=== PATIENT | female | born 1955 | race Caucasian/White ===

== ENCOUNTER 2017-06-21 06:24 | Day surgery (SDC) | payer BC ==
[2017-06-21] MEDS ORDERED: Lidocaine 1%/Sod Bicarbonate in NS 8.4% 1 ML Syringe IV PRN (07:19)
[2017-06-21] MEDS ORDERED: Bupivacaine 0.25% 30 ML SDV ONE (07:19)
[2017-06-21] MEDS ORDERED: Sodium Chloride 0.9% 10 ML Syringe FLUSH PRN (07:19)
[2017-06-21] MEDS ORDERED: fentaNYL 250 MCG/5 ML SDV ONE (07:21)
[2017-06-21] MEDS ORDERED: Midazolam 1 MG/ML 2 ML SDV ONE (07:21)
[2017-06-21] MEDS ORDERED: Dexamethasone 4 MG/ML SDV ONE (07:21)
[2017-06-21] MEDS ORDERED: Lidocaine 1% 4 ML ONE (07:21)
[2017-06-21] MEDS ORDERED: Rocuronium 50 MG/5 ML Vial ONE (07:21)
[2017-06-21] MEDS ORDERED: Propofol 200 MG/20 ML SDV ONE (07:21)
[2017-06-21] MEDS ORDERED: Ondansetron 4 MG/2 ML SDV ONE (07:21)
[2017-06-21] MEDS ORDERED: Lactated Ringers 1,000 ML IV SCH (07:30)
[2017-06-21] MEDS ORDERED: ceFAZolin 1 GM Vial ONE (07:33)
--- NOTE | 2017-06-21 07:40 | PCM.PREANE ---
Preanesthetic Assessment - Procedure Proposed Procedure: ORIF left distal radius fracture - Anesthesia/Transfusion/Family Hx Anesthesia History: Prior Anesthesia Without Reaction Family History of Anesthesia Reaction: No Transfusion History: No Prior Transfusion(s) Intubation History: Unknown - Review of Systems General: No Symptoms Pulmonary: No Symptoms Cardiovascular: Other (HTN) Gastrointestinal: No Symptoms Neurological: No Symptoms Other: Reports: None - Physical Assessment NPO Status Date: 06/20/17 NPO Status Time: 23:30 O2 Sat by Pulse Oximetry: 97 Respiratory Rate: 16 Vital Signs: Last Vital Signs Temp 36.6 C 06/21/17 07:00 Pulse 56 L 06/21/17 07:00 Resp 16 06/21/17 07:00 BP 113/61 06/21/17 07:00 Pulse Ox 97 06/21/17 07:00 Height: 1.63 m Weight: 89.358 kg ASA Class: 2 Mental Status: Alert & Oriented x3 Airway Class: Mallampati = 1 Dentition: Reports: Normal Dentition Thyro-Mental Finger Breadths: 3 Mouth Opening Finger Breadths: 3 ROM/Head Extension: Full Lungs: Clear to Auscultation, Normal Respiratory Effort Cardiovascular: Regular Rate, Regular Rhythm - Allergies Allergies/Adverse Reactions: Allergies Allergy/AdvReac Type Severity Reaction Status Date / Time No Known Allergies Allergy Verified 06/20/17 14:03 - Blood Blood Available: No Product(s) Available: None - Anesthesia Plan Pre-Op Medication Ordered: None - Acknowledgements Anesthesia Type Planned: General Anesthesia Pt an Appropriate Candidate for the Planned Anesthesia: Yes Alternatives and Risks of Anesthesia Discussed w Pt/Guardian: Yes Pt/Guardian Understands and Agrees with Anesthesia Plan: Yes PreAnesthesia Questionnaire HEENT History: Reports: None Cardiovascular History: Reports: Hypertension Respiratory History: Reports: Other (See Below) Other Respiratory History: acute bronchitis Gastrointestinal History: Reports: None Genitourinary History: Reports: None 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 Musculoskeletal History: Reports: Other (See Below) Other Musculoskeletal History: body aches, knee surgery Neurological History: Reports: Headaches, Chronic, Other (See Below) Other Neuro History: numbness and tingling to right face Psychiatric History: Reports: None Endocrine/Metabolic History: Reports: None Hematologic History: Reports: None Immunologic History: Reports: None Oncologic (Cancer) History: Reports: None Dermatologic History: Reports: None - Past Surgical History HEENT Surgical History: Reports: None Cardiovascular Surgical History: Reports: None Respiratory Surgical History: Reports: None GI Surgical History: Reports: None Female Surgical History: Reports: Section Male Surgical History: Reports: None Endocrine Surgical History: Reports: None Neurological Surgical History: Reports: None Musculoskeletal Surgical History: Reports: None Oncologic Surgical History: Reports: None Dermatological Surgical History: Reports: None - SUBSTANCE USE Smoking Status *Q: Never Smoker Second Hand Smoke Exposure: No Recreational Drug Use History: No - HOME MEDS Home Medications: Home Meds Acetaminophen [Tylenol Extra Strength] 2 tab PO Q6H PRN 06/20/17 [History] Aspirin [Children's Aspirin] 81 mg PO DAILY 06/20/17 [History] Lisinopril 10 mg PO DAILY 06/20/17 [History] Metoprolol Tartrate 25 mg PO BID 06/20/17 [History] Omeprazole 20 mg PO DAILY 06/20/17 [History] Acetaminophen/HYDROcodone [[place] 325-5 MG] 1 - 2 tab PO Q6H PRN #40 tablet 06/21 [Rx] - CURRENT (IN HOUSE) MEDS Current Meds: Current Medications Lactated Ringer's (Ringers, Lactated) 1,000 mls @ 125 mls/hr IV ASDIRECTED ADÁN Stop: 06/21/17 18:00 Last Admin: 06/21/17 07:15 Dose: 125 mls/hr Lidocaine/Sodium Bicarbonate (Buffered Lidocaine 1% In Ns 8.4%) 0.25 ml IV ONETIME PRN PRN Reason: Prior to IV Start Stop: 06/21/17 18:00 Last Admin: 06/21/17 07:15 Dose: 0.25 ml Sodium Chloride (Saline Flush) 10 ml FLUSH ASDIRECTED PRN PRN Reason: Keep Vein Open Stop: 06/21/17 18:00 Discontinued Medications Bupivacaine HCl (Marcaine 0.25%) Confirm Administered Dose 30 ml .ROUTE .STK- MED ONE Stop: 06/21/17 07:20 Cefazolin Sodium (Ancef) Confirm Administered Dose 2 gm .ROUTE .STK-MED ONE Stop: 06/21/17 07:34 Dexamethasone (Dexamethasone) Confirm Administered Dose 4 mg .ROUTE .STK-MED ONE Stop: 06/21/17 07:22 Fentanyl (Sublimaze) Confirm Administered Dose 250 mcg .ROUTE .STK-MED ONE Stop: 06/21/17 07:22 Lidocaine HCl (Xylocaine-Mpf 1%) Confirm Administered Dose 4 mls @ as directed .ROUTE .STK-MED ONE Stop: 06/21/17 07:22 Midazolam HCl (Versed 1 Mg/Ml) Confirm Administered Dose 2 mg .ROUTE .STK-MED ONE Stop: 06/21/17 07:22 Ondansetron HCl (Zofran) Confirm Administered Dose 4 mg .ROUTE .STK-MED ONE Stop: 06/21/17 07:22 Propofol (Diprivan 20 Ml) Confirm Administered Dose 200 mg .ROUTE .STK-MED ONE Stop: 06/21/17 07:22 Rocuronium Melbeta (Zemuron) Confirm Administered Dose 50 mg .ROUTE .STK-MED ONE Stop: 06/21/17 07:22
[2017-06-21] MEDS ORDERED: ePHEDrine 50 MG/ML SDV ONE (09:03)
[2017-06-21] MEDS ORDERED: Lactated Ringers 1,000 ML ONE (09:08)
[2017-06-21] MEDS ORDERED: HYDROmorphone 1 MG/ML Syringe ONE (09:54)
[2017-06-21] MEDS ORDERED: HYDROmorphone 0.5 MG/0.5 ML Syringe IVPUSH PRN (09:57)
[2017-06-21] MEDS ORDERED: diphenhydrAMINE 50 MG/ML SDV IVPUSH PRN (09:57)
[2017-06-21] MEDS ORDERED: Promethazine 6.25 MG in Sodium Chloride 0.9% 50 ML IV PRN (09:57)
[2017-06-21] MEDS ORDERED: fentaNYL 100 MCG/2 ML SDV IVPUSH PRN (09:57)
[2017-06-21] MEDS ORDERED: Meperidine PF 50 MG/ML Syringe IVPUSH PRN (09:57)
[2017-06-21] MEDS ORDERED: Neostigmine Methylsulfate 1 MG/ML 5 ML Syringe ONE (10:09)
--- NOTE | 2017-06-21 10:31 | PCM.POSTAN ---
POST ANESTHESIA ASSESSMENT - MENTAL STATUS Mental Status: Alert, Oriented - VITAL SIGNS Pulse Rate: 68 SaO2: 97 Resp Rate: 12 Blood Pressure: 99/55 Temperature: 37.4 C - RESPIRATORY Respiratory Status: Respiratory Rate WNL, Airway Patent, O2 Saturation Stable, Supplemental Oxygen - CARDIOVASCULAR CV Status: Pulse Rate WNL, Blood Pressure Stable - GASTROINTESTINAL GI Status: No Symptoms - PAIN Pain Score: 0 - POST OP HYDRATION Hydration Status: Adequate & Stable
--- NOTE | 2017-06-21 10:46 | CR ---
Left wrist: 14 fluoroscopic spot views were obtained utilizing C-arm device. Comparison: No prior wrist exam. Findings: Study shows placement of plate and screws within the distal left radius. This appears to affix a fracture. Fluoroscopy time given as 134.9 seconds. Impression: 1. Operative study as described above. Diagnostic code #2
[2017-06-21] MEDS ORDERED: Acetaminophen/HYDROcodone 325-5 MG Tab PO ONE ×3 (11:55→15:00)
[2017-06-21] MEDS ORDERED: Acetaminophen/HYDROcodone 325-10 MG Tab PO ONE ×2 (12:50→14:30)
--- NOTE | 2017-06-26 13:20 | PCM.OPNOTE ---
- General Post-Op/Procedure Note Date of Surgery/Procedure: 06/21/17 Operative Procedure(s): open reduction internal fixation of left distal radius fracture Pre Op Diagnosis: left intraarticular distal radius fracture Post-Op Diagnosis: Same Anesthesia Technique: General LMA, Local Primary Surgeon: Aidan South Anesthesia Provider: Roland Antunez Wood Drill Operator: Priyanka Ayala in mLs: 5 Complications: None Condition: Good
--- NOTE | 2017-06-26 15:03 | OR ---
DATE OF OPERATION: 06/21/2017 SURGEON: Aidan South MD OPERATION PERFORMED: Open reduction and internal fixation of left intra- articular distal radius fracture. PREOPERATIVE DIAGNOSIS: Left intraarticular distal radius fracture. POSTOPERATIVE DIAGNOSIS: Left intraarticular distal radius fracture. ANESTHESIA: General LMA with local. ANESTHESIA PROVIDER: Roland Antunez. CURB MACHINE OPERATOR: Priyanka Ayala PA-C ESTIMATED BLOOD LOSS: Less than 5 mL. COMPLICATIONS: None. CONDITION: Stable. DESCRIPTION OF PROCEDURE: The patient was identified in the preop holding area. Proper site was marked and identified by the surgeon. The patient was taken back to the operating theater. After adequate anesthesia, the patient had a nonsterile tourniquet applied to the left upper extremity. The left upper extremity was then sterilely prepped and draped in the usual sterile fashion. OR time-out was performed. The patient received 2 g IV Ancef. The left upper extremity was then exsanguinated. Tourniquet was insufflated to a 225 mmHg. Standard volar approach of Mega was used incision over the FCR tendon distally. The tendon sheath was then opened. The tendon was retracted ulnarly to protect the median nerve. The floor of the tendon sheath was then opened. Blunt dissection was taken down to the pronator quadratus. Pronator quadratus was then elevated off the distal radius. The fracture site was identified. There was noted to be multiple fracture lines that were intraarticular. At this time, the radial styloid was noted to have some step-off. At this time, with the use of K-wires, provisional reduction was then done and an intermediate [place] distal radial volar locking plate was placed under C-arm fluoroscopy. It was found to be in adequate position. At this time, a nonlocking screw was placed in the shaft to bring the plate down to the bone and was found to have adequate placement on both the AP and lateral views. At this time, reduction maneuvers were done to make sure the radius maintained height and volar tilt. At this time, 2.7 locking screws were then placed distally to hold the radial styloid piece as well as the other intraarticular pieces in place. It was found to have good stability. Two other nonlocking 2.7 screws were then placed in the shaft. The DRUJ was then tested and was found to be stable with no signs of instability. At this time, adequate saline was then irrigated through the wound. A 2-0 Vicryl was used for closure of the FCR tendon sheath, 3-0 Vicryl was used subcutaneously and Monocryl was used for the skin. The patient was placed in a sterile soft dressing and a splint and sent to PACU in stable condition. MMNICHOLAS /[id number]
== END 2017-06-21 14:30 | disposition home or self-care (01) ==
LOC: JD.SDS 06:24
PROVIDERS: ATTEND Orthopaedic Surgery
DX: S52.572A Other intraarticular fracture of lower end of left radius, initial encounter for closed fracture (principal); I10 Essential (primary) hypertension; K21.9 Gastro-esophageal reflux disease without esophagitis; Z79.82 Long term (current) use of aspirin; Z79.899 Other long term (current) drug therapy; Z98.890 Other specified postprocedural states; X58.XXXA Exposure to other specified factors, initial encounter
CPT/HCPCS: 25608; 76000; A9270; C1713; C1776; J0690; J1100; J1170; J2250; J2405; J2710; J3010; J3490; J7120; 01830; J2704

== ENCOUNTER 2018-11-12 17:41 | Emergency (ER) | payer BC ==
[2018-11-12] MEDS ORDERED: Sodium Chloride 0.9% 10 ML Syringe FLUSH PRN (18:51)
--- NOTE | 2018-11-12 18:57 | EDM.PDOC ---
ED HPI GENERAL MEDICAL PROBLEM - General Chief Complaint: Cardiovascular Problem Stated Complaint: TIGHTNESS IN CHEST Time Seen by Provider: 11/12/18 18:39 Source of Information: Reports: Patient, RN Notes Reviewed History Limitations: Reports: No Limitations - History of Present Illness INITIAL COMMENTS - FREE TEXT/NARRATIVE: Patient is a 63-year-old female who presents to the ED for the evaluation of chest heaviness. She states this started to occur around 2-3 days ago. She notes that her chest feels more heavy, and her breathing has been heavy. She states that today she had to lay down and take a nap for something she does not normally do. She states that she has some chest tightness in her mid sternum area but this radiates more to the right side. She states she's never felt anything like this before. She is on blood pressure medications, has history of heartburn for which she takes Prilosec daily (this has not been providing much benefit), she denies any cough, fever/chills, nausea/vomiting/diarrhea. She states she has been feeling well otherwise she notes just the chest heaviness. Chest Pain Score (Numeric/FACES): 6 - Related Data Allergies Allergy/AdvReac Type Severity Reaction Status Date / Time No Known Allergies Allergy Verified 11/12/18 17:53 Home Meds: Home Meds Acetaminophen [Tylenol Extra Strength] 2 tab PO Q6H PRN 06/20/17 [History] Aspirin [Children's Aspirin] 81 mg PO DAILY 06/20/17 [History] Lisinopril 10 mg PO DAILY 06/20/17 [History] Metoprolol Tartrate 25 mg PO BID 06/20/17 [History] Omeprazole 20 mg PO DAILY 06/20/17 [History] Past Medical History HEENT History: Reports: None Cardiovascular History: Reports: Hypertension Respiratory History: Reports: Other (See Below) Other Respiratory History: acute bronchitis Gastrointestinal History: Reports: None Genitourinary History: Reports: None [employer]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: Musculoskeletal History: Reports: Other (See Below) Other Musculoskeletal History: body aches, knee surgery Neurological History: Reports: Headaches, Chronic, Other (See Below) Other Neuro History: numbness and tingling to right face Psychiatric History: Reports: None Endocrine/Metabolic History: Reports: None Hematologic History: Reports: None Immunologic History: Reports: None Oncologic (Cancer) History: Reports: None Dermatologic History: Reports: None - Past Surgical History HEENT Surgical History: Reports: None Cardiovascular Surgical History: Reports: None Respiratory Surgical History: Reports: None GI Surgical History: Reports: None Female Surgical History: Reports: Section Endocrine Surgical History: Reports: None Neurological Surgical History: Reports: None Musculoskeletal Surgical History: Reports: Other (See Below) Other Musculoskeletal Surgeries/Procedures:: Knee and L wrist Oncologic Surgical History: Reports: None Dermatological Surgical History: Reports: None Social & Family History - Tobacco Use Smoking Status *Q: Never Smoker Second Hand Smoke Exposure: No - Caffeine Use Caffeine Use: Reports: Soda - Recreational Drug Use Recreational Drug Use: No ED ROS GENERAL - Review of Systems Review Of Systems: See Below Constitutional: Reports: Malaise. Denies: Fever, Chills, Weakness HEENT: Reports: No Symptoms Respiratory: Denies: Shortness of Breath, Wheezing, Cough, Sputum Cardiovascular: Reports: Chest Pain (chest discomfort/heaviness). Denies: Dyspnea on Exertion, Orthopnea Endocrine: Reports: No Symptoms GI/Abdominal: Denies: Diarrhea, Nausea, Vomiting : Reports: No Symptoms Musculoskeletal: Reports: No Symptoms Skin: Reports: No Symptoms Neurological: Reports: No Symptoms Psychiatric: Reports: No Symptoms Hematologic/Lymphatic: Reports: No Symptoms Immunologic: Reports: No Symptoms ED EXAM, GENERAL - Physical Exam Exam: See Below Exam Limited By: No Limitations General Appearance: Alert, WD/WN, No Apparent Distress Eye Exam: Bilateral Eye: EOMI, Normal Inspection, PERRL Ears: Normal External Exam Nose: Normal Inspection Throat/Mouth: Normal Inspection, Normal Lips, Normal Teeth, Normal Oropharynx, Normal Voice, No Airway Compromise Head: Atraumatic, Normocephalic Neck: Normal Inspection Respiratory/Chest: No Respiratory Distress, Lungs Clear, Normal Breath Sounds, No Accessory Muscle Use, Chest Non-Tender Cardiovascular: Normal Peripheral Pulses, Regular Rate, Rhythm, No Murmur GI/Abdominal: Normal Bowel Sounds, Soft, Non-Tender Extremities: Normal Inspection, Normal Capillary Refill Neurological: Alert, Oriented, Normal Cognition, No Motor/Sensory Deficits Psychiatric: Normal Affect, Normal Mood Skin Exam: Warm, Dry, Intact, Normal Color, No Rash EKG INTERPRETATION EKG Date: 11/12/18 Time: 18:08 Rhythm: NSR Rate (Beats/Min): 71 [place]: Normal P-Wave: Present QRS: Normal ST-T: Normal QT: Normal Comparison: NA - No Prior EKG EKG Interpretation Comments: Reviewed with Dr. Matias Course - Vital Signs Last Recorded V/S: Last Vital Signs Temp 97.4 F 11/12/18 17:55 Pulse 76 11/12/18 17:55 Resp 20 11/12/18 17:55 BP 129/76 11/12/18 17:55 Pulse Ox 98 11/12/18 17:55 - Orders/Labs/Meds Orders: Active Orders 24 hr Category Date Time Status EKG Documentation Completion [RC] ASDIRECTED Care 11/12/18 18:09 Active Peripheral IV Care [RC] . DIRECTED Care 11/12/18 18:51 Ordered Chest 2V [CR] Stat Exams 11/12/18 18:51 Ordered Sodium Chloride 0.9% [Saline Flush] Med 11/12/18 18:51 Ordered 10 ml FLUSH ASDIRECTED PRN Peripheral IV Insertion Adult [OM.PC] Routine Oth 11/12/18 18:51 Ordered EKG 12 Lead [EK] Stat Ther 11/12/18 18:09 Ordered Medication Orders Sodium Chloride (Saline Flush) 10 ml FLUSH ASDIRECTED PRN PRN Reason: Keep Vein Open Last Admin: 11/12/18 19:38 Dose: 10 ml Labs: Laboratory Tests 11/12/18 11/12/18 11/12/18 Range/Units 19:27 19:27 19:27 WBC 7.65 (3.98-10.04) K/mm3 RBC 4.24 (3.98-5.22) M/mm3 Hgb 13.2 (11.2-15.7) gm/L Hct 40.0 (34.1-44.9) % MCV 94.3 (79.4-94.8) fl MCH 31.1 (25.6-32.2) pg MCHC 33.0 (32.2-35.5) g/dl RDW Std Deviation 45.1 (36.4-46.3) fL Plt Count 307 (182-369) K/mm3 MPV 10.0 (9.4-12.3) fl Neutrophils % (Manual) 38 L (40-60) % Band Neutrophils % 0 (0-10) % Lymphocytes % (Manual) 48 H (20-40) % Atypical Lymphs % 0 % Monocytes % (Manual) 6 (2-10) % Eosinophils % (Manual) 5 (0.7-5.8) % Basophils % (Manual) 3 H (0.1-1.2) Platelet Estimate Adequate Plt Morphology Comment See note RBC Morph Comment Normal PT 9.9 (9.5-12.1) SECONDS INR < 0.93 APTT 27 (24-31) SECONDS D-Dimer, Quantitative 0.34 (0.19-0.50) mg/L Sodium 140 (136-145) mEq/L Potassium 4.4 (3.5-5.1) mEq/L Chloride 105 (98-107) mEq/L Carbon Dioxide 26 (21-32) mEq/L Anion Gap 13.4 (5-15) BUN 11 (7-18) mg/dL Creatinine 0.8 (0.55-1.02) mg/dL Est Cr Clr Drug Dosing 65.61 mL/min Estimated GFR (MDRD) > 60 (>60) mL/min BUN/Creatinine Ratio 13.8 L (14-18) Glucose 104 (80-115) mg/dL Calcium 8.9 (8.5-10.1) mg/dL Total Bilirubin 0.2 (0.2-1.0) mg/dL AST 15 (15-37) U/L ALT 24 (14-59) U/L Alkaline Phosphatase 123 H (46-116) U/L Troponin I < 0.017 (0.00-0.056) ng/mL NT-Pro-B Natriuret Pep (0-125) pg/mL Total Protein 7.0 (6.4-8.2) g/dl Albumin 3.5 (3.4-5.0) g/dl Globulin 3.5 gm/dL Albumin/Globulin Ratio 1.0 (1-2) 11/12/18 Range/Units 19:27 WBC (3.98-10.04) K/mm3 RBC (3.98-5.22) M/mm3 Hgb (11.2-15.7) gm/L Hct (34.1-44.9) % MCV (79.4-94.8) fl MCH (25.6-32.2) pg MCHC (32.2-35.5) g/dl RDW Std Deviation (36.4-46.3) fL Plt Count (182-369) K/mm3 MPV (9.4-12.3) fl Neutrophils % (Manual) (40-60) % Band Neutrophils % (0-10) % Lymphocytes % (Manual) (20-40) % Atypical Lymphs % % Monocytes % (Manual) (2-10) % Eosinophils % (Manual) (0.7-5.8) % Basophils % (Manual) (0.1-1.2) Platelet Estimate Plt Morphology Comment RBC Morph Comment PT (9.5-12.1) SECONDS INR APTT (24-31) SECONDS D-Dimer, Quantitative (0.19-0.50) mg/L Sodium (136-145) mEq/L Potassium (3.5-5.1) mEq/L Chloride (98-107) mEq/L Carbon Dioxide (21-32) mEq/L Anion Gap (5-15) BUN (7-18) mg/dL Creatinine (0.55-1.02) mg/dL Est Cr Clr Drug Dosing mL/min Estimated GFR (MDRD) (>60) mL/min BUN/Creatinine Ratio (14-18) Glucose (80-115) mg/dL Calcium (8.5-10.1) mg/dL Total Bilirubin (0.2-1.0) mg/dL AST (15-37) U/L ALT (14-59) U/L Alkaline Phosphatase (46-116) U/L Troponin I (0.00-0.056) ng/mL NT-Pro-B Natriuret Pep 34 (0-125) pg/mL Total Protein (6.4-8.2) g/dl Albumin (3.4-5.0) g/dl Globulin gm/dL Albumin/Globulin Ratio (1-2) Meds: Medications Generic Name Dose Route Start Last Admin Trade Name Freq PRN Reason Stop Dose Admin Sodium Chloride 10 ml 11/12/18 18:51 11/12/18 19:38 Saline Flush FLUSH 10 ml ASDIRECTED PRN Administration Keep Vein Open - Re-Assessments/Exams Free Text/Narrative Re-Assessment/Exam: 11/12/18 18:56 Patient presents to the ED for the evaluation of chest tightness. EKG, chest x- ray, CBC, CMP, BNP, d-dimer, troponin, PT/INR, PTT have been ordered for further evaluation. EKG was done at time of triage and does not elicit any acute ischemic changes at this time. 11/12/18 20:18 Patient's chest x-ray is not worrisome at this time, this was reviewed with Dr. Holliday and does not appear to present with any acute changes at this time. Her troponin is also negative at this time and other labs are unremarkable, d- dimer and other coagulation studies are pending however. 11/12/18 20:38 Patient's d-dimer is within normal limits at this time, most likely that this patient had a viral respiratory illness that caused some of her fatigue and heaviness with breathing. Will give general recommendations and discharge home safely at this time. Departure - Departure Time of Disposition: 20:39 Disposition: Home, Self-Care 01 Condition: Fair Clinical Impression: Chest heaviness Instructions: Nonspecific Chest Pain, [id number], Shortness of Breath, Adult , [id number] Referrals: Amita Sandra PA-C [Primary Care Provider] - Forms: ED Department Discharge Additional Instructions: You have been evaluated in the ED tonight for your chest heaviness. Your labs demonstrate no acute abnormalities at this time, you are not having a heart attack or you do not have a pulmonary embolus at this ED visit. Your symptoms may likely be due to a viral cold-like illness that has settled into your chest. You may take general [id number] cold medications that are appropriate for with high blood pressure likely Coricidin HBP, or others. Please increase your oral fluid intake as this may also help your symptoms. Please return to the ED if your symptoms change or worsen. - My Orders Last 24 Hours: My Active Orders 11/12/18 18:09 EKG Documentation Completion [RC] ASDIRECTED EKG 12 Lead [EK] Stat 11/12/18 18:51 Peripheral IV Care [RC] . DIRECTED Chest 2V [CR] Stat Sodium Chloride 0.9% [Saline Flush] 10 ml FLUSH ASDIRECTED PRN Peripheral IV Insertion Adult [OM.PC] Routine - Assessment/Plan Last 24 Hours: My Active Orders 11/12/18 18:09 EKG Documentation Completion [RC] ASDIRECTED EKG 12 Lead [EK] Stat 11/12/18 18:51 Peripheral IV Care [RC] . DIRECTED Chest 2V [CR] Stat Sodium Chloride 0.9% [Saline Flush] 10 ml FLUSH ASDIRECTED PRN Peripheral IV Insertion Adult [OM.PC] Routine
--- NOTE | 2018-11-13 06:22 | CR ---
Chest: Two views of the chest were obtained. Comparison: Prior chest x-ray of 12/12/09. Heart size and mediastinum are normal. Minimal atelectasis noted within the left base. Lungs otherwise are clear. Bony structures are unremarkable for the patient's age. Impression: 1. Incidental finding. Nothing acute is appreciated on two-view chest x-ray. Diagnostic code #2
== END 2018-11-12 20:59 | disposition home or self-care (01) ==
LOC: JD.ED 17:41
DX: R07.89 Other chest pain (principal); I10 Essential (primary) hypertension; Z79.899 Other long term (current) drug therapy
CPT/HCPCS: 36415; 71046; 71046-26; 80053; 83880; 84484; 85007; 85027; 85379; 85610; 85730; 93005; 93010; 99285; 99285-25

== ENCOUNTER 2020-11-09 17:38 | Emergency (ER) | payer BC ==
[2020-11-09] MEDS ORDERED: Sodium Chloride 0.9% 10 ML Syringe FLUSH PRN (17:44)
[2020-11-09] MEDS ORDERED: Alum Hydrox/Mag Hydrox/Simeth 30 ML, Lidocaine 2% 15 ML PO ONE ×2 (17:54)
--- NOTE | 2020-11-09 17:57 | EDM.PDOC ---
ED HPI GENERAL MEDICAL PROBLEM - General Chief Complaint: Chest Pain Stated Complaint: CHEST PAIN Time Seen by Provider: 11/09/20 17:44 Source of Information: Reports: Patient, RN Notes Reviewed History Limitations: Reports: No Limitations - History of Present Illness INITIAL COMMENTS - FREE TEXT/NARRATIVE: Patient is a 65-year-old female who presents to the ED for her mid cent ral/epigastric chest discomfort. Patient notes that the pain started this afternoon, and has been persistent all afternoon. She notes this to be kind of a gnawing/aching pain in nature, nothing seems really make it better, and she notes that it seemed to have worsened with activity. She states that she is fairly active in her grandchildren's life, and has been taking care of them today as well. She did take a Prilosec, and aspirin at the onset of the discomfort. States that the pain does not radiate anywhere. Patient initially thought it could be acid reflux, this is why she took the Prilosec. Primary care provider is Amita Sandra. She has had no fevers or chills, cough or shortness of breath, or any sort of nausea/vomiting/diarrhea. Chest Pain Score (Numeric/FACES): 8 - Related Data Allergies Allergy/AdvReac Type Severity Reaction Status Date / Time No Known Allergies Allergy Verified 11/09/20 17:52 Home Meds: Home Meds Acetaminophen [Tylenol Extra Strength] 2 tab PO Q6H PRN 06/20/17 [History] Aspirin [Children's Aspirin] 81 mg PO DAILY 06/20/17 [History] Lisinopril 10 mg PO DAILY 06/20/17 [History] Metoprolol Tartrate 25 mg PO BID 06/20/17 [History] Omeprazole 20 mg PO DAILY 06/20/17 [History] Past Medical History HEENT History: Reports: None Cardiovascular History: Reports: Hypertension Respiratory History: Reports: Other (See Below) Other Respiratory History: acute bronchitis Gastrointestinal History: Reports: None Genitourinary History: Reports: None [employer] History: Reports: Musculoskeletal History: Reports: Other (See Below) Other Musculoskeletal History: body aches, knee surgery Neurological History: Reports: Headaches, Chronic, Other (See Below) Other Neuro History: numbness and tingling to right face Psychiatric History: Reports: None Endocrine/Metabolic History: Reports: None Hematologic History: Reports: None Immunologic History: Reports: None Oncologic (Cancer) History: Reports: None Dermatologic History: Reports: None - Past Surgical History HEENT Surgical History: Reports: None Cardiovascular Surgical History: Reports: None Respiratory Surgical History: Reports: None GI Surgical History: Reports: None Female Surgical History: Reports: Section Endocrine Surgical History: Reports: None Neurological Surgical History: Reports: None Musculoskeletal Surgical History: Reports: Other (See Below) Other Musculoskeletal Surgeries/Procedures:: Knee and L wrist Oncologic Surgical History: Reports: None Dermatological Surgical History: Reports: None Social & Family History - Caffeine Use Caffeine Use: Reports: Soda ED ROS GENERAL - Review of Systems Review Of Systems: Comprehensive ROS is negative, except as noted in HPI. ED EXAM, GENERAL - Physical Exam Exam: See Below Exam Limited By: No Limitations General Appearance: Alert, WD/WN, No Apparent Distress Respiratory/Chest: No Respiratory Distress, Lungs Clear, Normal Breath Sounds, No Accessory Muscle Use, Chest Non-Tender Cardiovascular: Normal Peripheral Pulses, Regular Rate, Rhythm, No Edema Peripheral Pulses: 2+: Radial (L), Radial (R) Extremities: Normal Inspection, Normal Capillary Refill Neurological: Alert, Oriented, Normal Cognition, No Motor/Sensory Deficits Psychiatric: Normal Affect, Normal Mood Skin Exam: Warm, Dry, Intact, Normal Color, No Rash #1 Interpretation EKG Date: 11/09/20 Time: 17:46 Rhythm: NSR Rate (Beats/Min): 83 [place]: Normal P-Wave: Present QRS: Normal ST-T: Normal QT: Normal Comparison: No Change EKG Interpretation Comments: No obvious ischemia or acute ST changes noted, reviewed by myself and Dr. Rojas. Course - Vital Signs Last Recorded V/S: Last Vital Signs Temp 97.5 F 11/09/20 17:46 Pulse 82 11/09/20 17:46 Resp 18 11/09/20 17:46 BP 150/113 H 11/09/20 17:46 Pulse Ox 97 11/09/20 17:46 - Orders/Labs/Meds Orders: Active Orders 24 hr Category Date Time Status EKG Documentation Completion [RC] STAT Care 11/09/20 17:44 Active Peripheral IV Care [RC] . DIRECTED Care 11/09/20 17:44 Active Chest 1V Frontal [CR] Stat Exams 11/09/20 17:44 Taken Sodium Chloride 0.9% [Saline Flush] Med 11/09/20 17:44 Active 10 ml FLUSH ASDIRECTED PRN Peripheral IV Insertion Adult [OM.PC] Stat Oth 11/09/20 17:44 Ordered Medication Orders Sodium Chloride (Sodium Chloride 0.9% 10 Ml Syringe) 10 ml FLUSH ASDIRECTED PRN PRN Reason: Keep Vein Open Last Admin: 11/09/20 18:11 Dose: 10 ml Documented by: CLAUDY Labs: Laboratory Tests 11/09/20 11/09/20 11/09/20 Range/Units 17:53 17:53 17:53 WBC 9.61 (3.98-10.04) K/mm3 RBC 4.36 (3.98-5.22) M/mm3 Hgb 13.5 (11.2-15.7) gm/dl Hct 41.1 (34.1-44.9) % MCV 94.3 (79.4-94.8) fl MCH 31.0 (25.6-32.2) pg MCHC 32.8 (32.2-35.5) g/dl RDW Std Deviation 43.7 (36.4-46.3) fL Plt Count 289 (182-369) K/mm3 MPV 10.5 (9.4-12.3) fl Neut % (Auto) 50.8 (34.0-71.1) % Lymph % (Auto) 33.9 (19.3-51.7) % [place] % (Auto) 9.6 (4.7-12.5) % Eos % (Auto) 5.3 (0.7-5.8) Baso % (Auto) 0.3 (0.1-1.2) % Neut # (Auto) 4.88 (1.56-6.13) K/mm3 Lymph # (Auto) 3.26 (1.18-3.74) K/mm3 [place] # (Auto) 0.92 H (0.24-0.36) K/mm3 Eos # (Auto) 0.51 H (0.04-0.36) K/mm3 Baso # (Auto) 0.03 (0.01-0.08) K/mm3 Sodium 142 (136-145) mEq/L Potassium 3.5 (3.5-5.1) mEq/L Chloride 106 (98-107) mEq/L Carbon Dioxide 28 (21-32) mEq/L Anion Gap 11.5 (5-15) BUN 9 (7-18) mg/dL Creatinine 0.8 (0.55-1.02) mg/dL Est Cr Clr Drug Dosing 66.51 mL/min Estimated GFR (MDRD) > 60 (>60) mL/min BUN/Creatinine Ratio 11.3 L (14-18) Glucose 96 (80-115) mg/dL Calcium 8.7 (8.5-10.1) mg/dL Magnesium 2.3 (1.8-2.4) mg/dl Total Bilirubin 0.2 (0.2-1.0) mg/dL AST 23 (15-37) U/L ALT 26 (14-59) U/L Alkaline Phosphatase 119 H (46-116) U/L Troponin I < 0.017 (0.00-0.056) ng/mL NT-Pro-B Natriuret Pep 296 H (0-125) pg/mL Total Protein 7.6 (6.4-8.2) g/dl Albumin 3.8 (3.4-5.0) g/dl Globulin 3.8 gm/dL Albumin/Globulin Ratio 1.0 (1-2) Meds: Medications Generic Name Dose Route Start Last Admin Trade Name Freq PRN Reason Stop Dose Admin Sodium Chloride 10 ml 11/09/20 17:44 11/09/20 18:11 Sodium Chloride 0.9% 10 Ml Syringe FLUSH 10 ml ASDIRECTED PRN Administration Keep Vein Open Discontinued Medications Generic Name Dose Route Start Last Admin Trade Name Freq PRN Reason Stop Dose Admin Al Hydroxide/Mg Hydroxide 30 0 ml 11/09/20 17:54 11/09/20 18:01 ml/ Lidocaine HCl 15 ml PO 11/09/20 17:55 45 ml ONETIME ONE Administration - Re-Assessments/Exams Free Text/Narrative Re-Assessment/Exam: 11/09/20 17:57 Patient presents to the ED for evaluation of her chest pain, we will go ahead get some baseline labs, EKG done at initial triage demonstrates normal sinus rhythm with multiple PVCs but no acute ST change or abnormalities. We will try GI cocktail with the patient as well to see if this does help relieve some of her discomfort. 11/09/20 18:33 Patient's labs are essentially unremarkable, I did have a chance to review the patient's chest x-ray, with Dr. Rojas, there appeared to be no acute abnormalities appreciated however official radiology read is still pending. I will reassess the patient to see if the GI cocktail helped, and hopefully discharge her home with general conservative recommendations. Departure - Departure Time of Disposition: 18:36 Disposition: Home, Self-Care 01 Condition: Good Clinical Impression: Epigastric discomfort Acid reflux Qualifiers: Esophagitis presence: esophagitis presence not specified Qualified Code(s): K21.9 - Gastro-esophageal reflux disease without esophagitis Instructions: Food Choices for Gastroesophageal Reflux Disease, Adult, [id number] Referrals: Amita Sandra PA-C [Primary Care Provider] - Forms: ED Department Discharge Additional Instructions: You were seen in this ER for your epigastric/chest discomfort. Laboratory evaluation, EKG and chest x-ray taken at today's visit, demonstrates no acute abnormalities. You are not suffering from a heart attack at today's visit. Recommend you go home, rest tonight see if this helps relieve some of your symptoms. The GI cocktail that we tried with you today seem to help relieve some of your symptoms. You may use Maalox, and [id number] medication at home, to help provide further relief for acid reflux. Highly recommend you take omeprazole (Prilosec) on a daily basis, rather than on a as needed basis; if you are not already doing so, as this medication works best if it is taken continuously to help reduce the acid in your stomach. Do not hesitate to return to the ER at any time if your symptoms should change or worsen. Sepsis Event Note (ED) - Evaluation Sepsis Screening Result: No Definite Risk - Focused Exam Vital Signs: Vital Signs Temp Pulse Resp BP Pulse Ox 11/09/20 17:46 97.5 F 82 18 150/113 H 97 - My Orders Last 24 Hours: My Active Orders 11/09/20 17:44 EKG Documentation Completion [RC] STAT Peripheral IV Care [RC] . DIRECTED Chest 1V Frontal [CR] Stat Sodium Chloride 0.9% [Saline Flush] 10 ml FLUSH ASDIRECTED PRN Peripheral IV Insertion Adult [OM.PC] Stat - Assessment/Plan Last 24 Hours: My Active Orders 11/09/20 17:44 EKG Documentation Completion [RC] STAT Peripheral IV Care [RC] . DIRECTED Chest 1V Frontal [CR] Stat Sodium Chloride 0.9% [Saline Flush] 10 ml FLUSH ASDIRECTED PRN Peripheral IV Insertion Adult [OM.PC] Stat
--- NOTE | 2020-11-10 08:29 | CR ---
Chest: Portable view of the chest was obtained. Comparison: Prior chest x-ray of 11/12/18. Heart size and mediastinum are normal. Minimal scarring is noted within the lateral left costophrenic angle. Lungs otherwise are clear. Minimal scoliosis is seen within the spine. No acute osseous abnormality is definitely appreciated. Impression: 1. Findings believed to be incidental as noted above. 2. Nothing acute is seen on portable chest x-ray. Diagnostic code #2
== END 2020-11-09 18:52 | disposition home or self-care (01) ==
LOC: JD.ED 17:38
DX: K21.9 Gastro-esophageal reflux disease without esophagitis (principal); I10 Essential (primary) hypertension; Z79.82 Long term (current) use of aspirin; Z79.899 Other long term (current) drug therapy
CPT/HCPCS: 36415; 71045; 80053; 83735; 83880; 84484; 85025; 93005; 99285; A9270; 93010; 99283

== ENCOUNTER 2021-09-11 17:27 | Emergency (ER) | payer MEDICARE, BC ==
[2021-09-11] MEDS ORDERED: Sodium Chloride 0.9% 10 ML Syringe FLUSH PRN (17:49)
== END 2021-09-11 19:20 | disposition home or self-care (01) ==
LOC: JD.ED 17:27
DX: R07.9 Chest pain, unspecified (principal); I10 Essential (primary) hypertension; Z79.82 Long term (current) use of aspirin; Z79.899 Other long term (current) drug therapy
CPT/HCPCS: 36415; 71045; 71045-26; 80053; 83735; 83880; 84484; 85025; 85610; 85730; 93005; 93010; 99284-25; 99285

== ENCOUNTER 2025-06-23 10:58 | Emergency (ER) | payer MEDICARE ==
[2025-06-23] MEDS ORDERED: Sodium Chloride 0.9% 10 ML Syringe FLUSH PRN (11:13)
[2025-06-23 11:31] LABS: BASOPHILS ABSOLUTE AUTO 0.0 K/mm3 (0.0-0.2); BASOPHILS PERCENT AUTO 0.7 % (0.0-1.0); EOSINOPHILS ABSOLUTE AUTO 0.2 K/mm3 (0.0-0.4); EOSINOPHILS PERCENT AUTO 3.2 % (0.0-6.0); IMMATURE GRAN ABSOLUTE AUTO 0.01 K/mm3 (0.00-0.05); IMMATURE GRAN PERCENT AUTO 0.2 % (0.0-0.4); LYMPHOCYTES ABSOLUTE AUTO 2.2 K/mm3 (1.0-4.8); LYMPHOCYTES PERCENT AUTO 37.2 % (24.0-44.0); MEAN PLATELET VOLUME 10.5 fl (9.4-12.3); MONOCYTES ABSOLUTE AUTO 0.6 K/mm3 (0.0-0.8); MONOCYTES PERCENT AUTO 9.9 % (0.0-8.0); NEUTROPHILS ABSOLUTE AUTO 2.9 K/mm3 (1.8-7.7); NEUTROPHILS PERCENT AUTO 48.8 % (41.0-71.0); NRBC ABSOLUTE 0.00 (0.00-0.02); NRBC PERCENT 0.0 % (0.0-0.2); PLATELET COUNT,PLT 234 K/mm3 (150-400); RED BLOOD CELL COUNT 4.19 M/mm3 (4.10-5.30); WHITE BLOOD CELL COUNT,WBC 5.96 K/mm3 (3.9-11.3)
[2025-06-23 11:51] LABS: A/G RATIO 1.1 (1-2); ALANINE AMINOTRANSFERASE,ALT 33.0 U/L (14-59); ASPARTATE AMNIOTRANSFERASE,AST 33.0 U/L (15-37); BLOOD UREA NITROGEN,BUN 9.0 mg/dL (7-18); CARBON DIOXIDE,CO2 25.0 mEq/L (21-32); CHLORIDE,CL 107.0 mEq/L (98-107); CREATININE 0.6 mg/dL (0.55-1.02); EST CRCL DRUG DOSING (CG) 79.63 mL/min; ESTIMATED GFR 97.0 mL/min (>60); GLUCOSE RANDOM 95.0 mg/dL (70-99); POTASSIUM,K 3.8 mEq/L (3.5-5.1); PROTEIN TOTAL,TP 6.8 g/dl (6.4-8.2); SODIUM,NA 142.0 mEq/L (136-145); TROPONIN I HIGH SENSITIVITY 11.0 pg/mL (<=51)
[2025-06-23 12:06] LABS: BILIRUBIN TOTAL 0.6 mg/dL (0.2-1.0)
== END 2025-06-23 15:00 | disposition home or self-care (01) ==
LOC: JD.ED 10:58
DX: R07.9 Chest pain, unspecified (principal); I10 Essential (primary) hypertension; E78.00 Pure hypercholesterolemia, unspecified; K21.9 Gastro-esophageal reflux disease without esophagitis; Z79.899 Other long term (current) drug therapy
CPT/HCPCS: 36415; 71045; 71045-26; 80053; 83735; 83880; 84484; 85025; 93005; 93010; 99284; 99285